=== PATIENT | male | born 1975 | race Caucasian/White ===

== ENCOUNTER 2017-10-14 01:17 | Emergency (ER) | payer SELFPAY ==
[~2017-10-14] VITALS: Ht 170.2 cm; Wt 91.0 kg
[2017-10-14] MEDS ORDERED: MORPHINE SULFATE 4 MG/ML CPJ (NOT FOR IM USE) IV STA (04:37)
[2017-10-14 04:49] VITALS: BP 132/72
== END 2017-10-14 04:55 | disposition left against medical advice (07) ==
LOC: ER 01:17
DX: R07.81 Pleurodynia (principal); Y04.0XXA Assault by unarmed brawl or fight, initial encounter; Y93.89 Activity, other specified; Y92.89 Other specified places as the place of occurrence of the external cause; Y99.8 Other external cause status
CPT/HCPCS: 99281; Z7610